=== PATIENT | female | born 1945 | race Two or more races ===

== ENCOUNTER 2018-11-25 11:47 | Outpatient (CLI) | payer MEDICARE | END 2018-11-25 23:59 | disposition home or self-care (01) | LOC: CVU 11:47 | PROVIDERS: ATTEND Internal Medicine Cardiovascular Disease | DX: I65.23 Occlusion and stenosis of bilateral carotid arteries (principal); I08.0 Rheumatic disorders of both mitral and aortic valves; I10 Essential (primary) hypertension; E78.5 Hyperlipidemia, unspecified; I65.1 Occlusion and stenosis of basilar artery | CPT/HCPCS: 93306; 93880 ==

== ENCOUNTER → 2020-03-25 | Outpatient (CLI) | payer MEDICARE | END | disposition home or self-care (01) | LOC: CVU 07:27 | PROVIDERS: ATTEND Internal Medicine Cardiovascular Disease | DX: I65.23 Occlusion and stenosis of bilateral carotid arteries (principal); I08.0 Rheumatic disorders of both mitral and aortic valves; I10 Essential (primary) hypertension; E78.5 Hyperlipidemia, unspecified; Z95.1 Presence of aortocoronary bypass graft | CPT/HCPCS: 93306; 93880 ==